=== PATIENT | male | born 1960 | race Caucasian/White ===

== ENCOUNTER 2017-07-20 21:15 | Emergency (ER) | payer BC, OTHER ==
[2017-07-20 21:25] VITALS: BMI 25.8
[2017-07-20] MEDS ORDERED: HYDROmorphone 1 mg/ml ISec IVP STA (21:34)
[2017-07-20] MEDS ORDERED: Sodium Chloride 0.9% 1,000 ML IV ONE (21:34)
--- NOTE | 2017-07-20 21:37 | C.PDOC ---
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 Patient states abdominal pain is "severe" and denies fevr, chills, vomiting, diarrhea, recent travel or any other complaints at this time. Chief Complaint (Nursing): Chest Pain History Per: Patient History/Exam Limitations: no limitations Onset/Duration Of Symptoms: Mins Current Symptoms Are (Timing): Still Present Past Medical History Reviewed: Historical Data, Nursing Documentation, Vital Signs Vital Signs: Last Vital Signs Temp 97.2 F L 07/20/17 21:25 Pulse 88 07/20/17 23:05 Resp 14 07/20/17 23:05 BP 97/60 L 07/20/17 23:05 Pulse Ox 98 07/21/17 00:01 - Medical History PMH: Asthma, Gall Bladder Disease Surgical History: No Surg Hx Family History: States: No Known Family Hx - Social History Hx Tobacco Use: Yes (former smoker) Hx Alcohol Use: Yes Hx Substance Use: No - Immunization History Hx Tetanus Toxoid Vaccination: No Hx Influenza Vaccination: No Hx Pneumococcal Vaccination: No Review Of Systems Except As Marked, All Systems Reviewed And Found Negative. Constitutional: Negative for: Fever, Chills Cardiovascular: Positive for: Chest Pain Respiratory: Negative for: Shortness of Breath Gastrointestinal: Positive for: Abdominal Pain. Negative for: Nausea, Vomiting Musculoskeletal: Negative for: Back Pain Skin: Negative for: Rash Physical Exam - Physical Exam Appears: Non-toxic Skin: Warm, Diaphoretic, Pale Head: Atraumatic, Normacephalic Eye(s): bilateral: Normal Inspection Oral Mucosa: Moist Neck: Normal ROM, Supple Chest: Symmetrical Cardiovascular: Rhythm Regular, No Murmur Respiratory: Normal Breath Sounds, No Rales, No Rhonchi, No Wheezing Gastrointestinal/Abdominal: Tenderness (to eigastrium and upper quadrant), Distention, No Guarding, No Rebound Extremity: Normal ROM, Capillary Refill (<2 seconds) Neurological/Psych: Oriented x3 ED Course And Treatment - Laboratory Results Result Diagrams: 07/20/17 21:39 07/20/17 21:39 ECG: Interpreted By Me, Viewed By Me ECG Rhythm: Sinus Rhythm ECG Interpretation: Normal, No Acute Changes Interpretation Of ECG: NSR, normal tracings. Rate From EC O2 Sat by Pulse Oximetry: 98 (RA) Pulse Ox Interpretation: Normal Disposition Counseled Patient/Family Regarding: Diagnosis - Disposition Referrals: [facility] [Outside] Disposition: HOME/ ROUTINE Disposition Time: 23:52 Condition: STABLE Prescriptions: Dicyclomine [Bentyl] 10 mg PO QID #14 cap Famotidine [Pepcid] 20 mg PO BID #30 tab Naproxen [Naprosyn Tab] 375 mg PO TIDPC #14 tab Potassium Chloride [K-Dur 20] 20 meq PO DAILY #10 tab Sucralfate [Carafate] 1 gm PO BID #20 tablet Instructions: Gastritis (GEN), Diet for Ulcers and Gastritis (ED), Hypokalemia (ED), Acute Abdominal Pain (GEN) Forms: [employer] (Nigerian) - POA Present On Arrival: None - Clinical Impression Clinical Impression: Abdominal pain, Gastritis, Hypokalemia - Scribe Statement The provider has reviewed the documentation as recorded by the Dolores Chamorro All medical record entries made by the Shelleyibelizabeth were at my direction and personally dictated by me. I have reviewed the chart and agree that the record accurately reflects my personal performance of the history, physical exam, medical decision making, and the department course for this patient. I have also personally directed, reviewed, and agree with the discharge instructions and disposition.
--- NOTE | 2017-07-20 21:38 | C.PDOC ---
Chief Complaint (Nursing): Chest Pain Past Medical History Vital Signs: Last Vital Signs Temp 97.2 F L 07/20/17 21:25 Pulse 79 07/20/17 21:25 Resp 18 07/20/17 21:25 BP 146/56 L 07/20/17 21:25 Pulse Ox 98 07/20/17 21:25 - Medical History PMH: Asthma, Gall Bladder Disease Family History: States: Unknown Family Hx - Social History Hx Tobacco Use: Yes (former smoker) Hx Alcohol Use: Yes Hx Substance Use: No - Immunization History Hx Tetanus Toxoid Vaccination: No Hx Influenza Vaccination: No Hx Pneumococcal Vaccination: No ED Course And Treatment O2 Sat by Pulse Oximetry: 98 Disposition - Disposition Forms: [employer] (Occitan)
[2017-07-20 21:45] LABS: BASO # 0.1 K/uL (0.0-0.2); BASO % 0.8 % (0.0-2.0); EOS # 0.1 K/uL (0.0-0.7); EOS % 1.8 % (0.0-4.0); HEMATOCRIT 47.4 % (35.0-51.0); LYMPH # 2.2 K/uL (1.0-4.3); LYMPH % 26.6 % (20.0-40.0); MEAN CELL VOLUME 84.9 fL (80.0-94.0); MEAN CORPUSCULAR HEMOGLOBIN 28.8 pg (27.0-31.0); MEAN CORPUSCULAR HGB CONC 33.9 g/dL (33.0-37.0); MEAN PLATELET VOLUME 7.2 fL (7.2-11.7); MONO # 0.7 K/uL (0.0-0.8); MONO % 8.8 % (0.0-10.0); RED CELL DISTRIBUTION WIDTH 12.9 % (11.5-14.5); WHITE BLOOD COUNT 8.1 K/uL (4.8-10.8)
[2017-07-20 21:54] LABS: CHLORIDE 102 mmol/L (98-107)
[2017-07-20 21:55] LABS: POTASSIUM 3.1 mmol/L (3.6-5.2); SODIUM 142 mmol/L (132-148)
[2017-07-20 21:57] LABS: ALB/GLOB RATIO 1.4 (1.0-2.1); ALKALINE PHOSPHATASE 132 U/L (38-126); ALT/SGPT 57 U/L (21-72); AST/SGOT 71 U/L (17-59); BILIRUBIN,TOTAL 0.7 mg/dL (0.2-1.3); BLOOD UREA NITROGEN 21 mg/dL (9-20); CARBON DIOXIDE 28 mmol/L (22-30); GFR AFRICAN-AMERICAN > 60; GLUCOSE,RANDOM 107 mg/dL (75-110); TOTAL PROTEIN 7.3 g/dL (6.3-8.3)
[2017-07-20 23:12] LABS: URINE BILIRUBIN NEGATIVE (NEGATIVE); URINE BLOOD NEGATIVE (NEGATIVE); URINE COLOR Yellow (YELLOW); URINE GLUCOSE (UA) NORMAL (Normal); URINE KETONE NEGATIVE (NEGATIVE); URINE LEUKOCYTE ESTERASE NEG Leu/uL (Negative); URINE PROTEIN NEGATIVE (NEGATIVE); URINE UROBILINOGEN NORMAL mg/dL (0.2-1.0); WBC URINE < 1 /hpf (0-5)
[2017-07-20 23:23] VITALS: RESP 14
--- NOTE | 2017-07-20 23:30 | CT ---
EXAM: CT Chest Without Intravenous Contrast CLINICAL HISTORY: 57 years old, male; Pain; Abdominal pain; Localized; Upper; Chest pain; Type not specified; Additional info: Severe chest / upper abd pain rad. To the back TECHNIQUE: Axial computed tomography images of the chest without intravenous contrast. All CT scans at this facility use one or more dose reduction techniques, viz.: automated exposure control; ma/kV adjustment per patient size (including targeted exams where dose is matched to indication; i.e. head); or iterative reconstruction technique. Coronal and sagittal reformatted images were created and reviewed. COMPARISON: CT - ANGIO CHEST PE PROTOCOL 05/19/2016 12:00:40 AM FINDINGS: Limitations: Lack of intravenous contrast. Lungs: No consolidation. RIGHT upper lobe calcified granuloma. Pleural space: No pneumothorax. No significant effusion. Heart: No cardiomegaly. No significant pericardial effusion. Bones/joints: No acute fracture. Soft tissues: Unremarkable. Vasculature: Unremarkable. No aneurysm. Lymph nodes: No pathologically enlarged lymph nodes. IMPRESSION: 1.No acute findings. 2.Non-acute findings are described above. EXAM: CT Abdomen and Pelvis Without Intravenous Contrast CLINICAL HISTORY: 57 years old, male; Pain; Abdominal pain; Localized; Upper; Chest pain; Type not specified; Additional info: Severe chest / upper abd pain rad. To the back TECHNIQUE: Axial computed tomography images of the abdomen and pelvis without intravenous contrast. All CT scans at this facility use one or more dose reduction techniques, viz.: automated exposure control; ma/kV adjustment per patient size (including targeted exams where dose is matched to indication; i.e. head); or iterative reconstruction technique. Coronal and sagittal reformatted images were created and reviewed. COMPARISON: No relevant prior studies available. FINDINGS: Limitations: Lack of intravenous contrast. ABDOMEN: Liver: Few too small to characterize lesions. Gallbladder and bile ducts: Gallstones. No ductal dilation. Pancreas: Unremarkable. No ductal dilation. Spleen: No splenomegaly. Adrenals: No mass. Kidneys and ureters: Few too small to characterize lesions within kidneys. Punctate calculus within LEFT kidney. No hydronephrosis. Stomach and bowel: No definite mural thickening. No obstruction. Appendix: Normal caliber. No inflammation. PELVIS: Bladder: Unremarkable. No stones. Reproductive: Unremarkable as visualized. ABDOMEN and PELVIS: Intraperitoneal space: No significant fluid collection. No free air. Bones/joints: Mild degenerative changes of spine. No acute fracture. Soft tissues: Unremarkable. Vasculature: Unremarkable. No aneurysm. Lymph nodes: No pathologically enlarged lymph nodes. IMPRESSION: 1. Cholelithiasis. 2. Incidental/non-acute findings are described above.
[2017-07-21] MEDS ORDERED: Naproxen 550 mg Tab PO STA (00:40)
[2017-07-21] MEDS ORDERED: Naproxen 550 mg Tab PO ONE (00:51)
[2017-07-21 00:55] VITALS: BP 101/64; PULSE 78; TEMP 97.8; O2SAT 98
== END 2017-07-21 00:45 | disposition home or self-care (01) ==
LOC: C.ER 21:15
DX: K29.70 Gastritis, unspecified, without bleeding (principal); R10.13 Epigastric pain; E87.6 Hypokalemia
CPT/HCPCS: 71250; 74176; 80053; 81001; 83690; 85025; 96374; 99285; J1170; J7040

== ENCOUNTER 2017-08-11 15:54 | Emergency (ER) | payer OTHER ==
[2017-08-11 15:54] VITALS: BMI 25.8
[2017-08-11 16:05] VITALS: RESP 20
[2017-08-11] MEDS ORDERED: Morphine 4 MG/ML VIAL IV ONE (16:22)
--- NOTE | 2017-08-11 16:23 | C.PDOC ---
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 upper abd pain which radiated into his mid chesPt ate rice and meat at approx 1PM then approx 1.5 hrs later had acute onset of pain.Pos nausea,no vomting.Pos prior hx stones to GB Chief Complaint (Nursing): Abdominal Pain History/Exam Limitations: no limitations Onset/Duration Of Symptoms: Mins Current Symptoms Are (Timing): Still Present Context: Food Severity: Mild Quality: Sharp Associated Symptoms: Nausea Modifying Factors: None Past Medical History Reviewed: Historical Data, Nursing Documentation, Vital Signs Vital Signs: Last Vital Signs Temp 99.8 F H 08/11/17 18:59 Pulse 80 08/11/17 18:47 Resp 20 08/11/17 18:47 BP 115/73 08/11/17 18:47 Pulse Ox 96 08/11/17 18:47 - Medical History PMH: Asthma, Gall Bladder Disease Family History: States: Unknown Family Hx - Social History Hx Tobacco Use: Yes (former smoker) Hx Alcohol Use: Yes Hx Substance Use: No - Immunization History Hx Tetanus Toxoid Vaccination: No Hx Influenza Vaccination: No Hx Pneumococcal Vaccination: No Review Of Systems Except As Marked, All Systems Reviewed And Found Negative. Respiratory: Negative for: Cough, Shortness of Breath Genitourinary: Negative for: Dysuria, Frequency Physical Exam - Physical Exam Appears: In Acute Distress Skin: Normal Color Head: Atraumatic Nose: Normal Oral Mucosa: Moist Tongue: Normal Appearing Neck: Normal Chest: Symmetrical Cardiovascular: Rhythm Regular Respiratory: Normal Breath Sounds Gastrointestinal/Abdominal: Tenderness Back: Normal Inspection Extremity: Normal ROM Neurological/Psych: Oriented x3, Normal Speech ED Course And Treatment - Laboratory Results Result Diagrams: 08/11/17 16:27 08/11/17 16:27 ECG: Interpreted By Me ECG Rhythm: Sinus Rhythm ECG Interpretation: Normal, No Acute Changes Interpretation Of ECG: nsr at 77bpm,intervals wnl,no ectopy,st segment,T waves all wnl.No old EKG for comparison Rate From EC O2 Sat by Pulse Oximetry: 100 (ra) - Radiology CXR: Interpreted by Me CXR Interpretation: Yes: No Acute Disease - CT Scan/US abdomen Other Rad Studies (CT/US): Read By Radiologist CT/US Interpretation: Pos cholelithiasis but no evidence of acute cholecystitis Medical Decision Making Medical Decision Making: Pt with exacerbation of biliary colic,now tolerating pain,taking fluids.Pt stable for d/c.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
[2017-08-11] MEDS ORDERED: Morphine 4 MG/ML VIAL ONE (16:26)
[2017-08-11 16:32] LABS: BASO # 0.1 K/uL (0.0-0.2); BASO % 0.8 % (0.0-2.0); EOS # 0.1 K/uL (0.0-0.7); EOS % 1.6 % (0.0-4.0); HEMATOCRIT 44.3 % (35.0-51.0); LYMPH # 1.6 K/uL (1.0-4.3); LYMPH % 19.4 % (20.0-40.0); MEAN CELL VOLUME 84.2 fL (80.0-94.0); MEAN CORPUSCULAR HEMOGLOBIN 29.1 pg (27.0-31.0); MEAN CORPUSCULAR HGB CONC 34.5 g/dL (33.0-37.0); MONO # 0.5 K/uL (0.0-0.8); MONO % 6.2 % (0.0-10.0); NRBC % 0.1 % (0.0-2.0); WHITE BLOOD COUNT 8.5 K/uL (4.8-10.8)
[2017-08-11 16:38] LABS: CHLORIDE 101 mmol/L (98-107); SODIUM 141 mmol/L (132-148)
[2017-08-11 16:41] LABS: ALB/GLOB RATIO 1.3 (1.0-2.1); ALKALINE PHOSPHATASE 121 U/L (38-126); ALT/SGPT 72 U/L (21-72); AST/SGOT 101 U/L (17-59); BILIRUBIN,TOTAL 1.3 mg/dL (0.2-1.3); BLOOD UREA NITROGEN 16 mg/dL (9-20); CARBON DIOXIDE 23 mmol/L (22-30); GFR AFRICAN-AMERICAN > 60; GLUCOSE,RANDOM 113 mg/dL (75-110); TOTAL PROTEIN 7.1 g/dL (6.3-8.3)
--- NOTE | 2017-08-11 17:20 | US ---
HISTORY: abd pain COMPARISON: Limited abdominal ultrasound performed 05/23/16 TECHNIQUE: Sonographic evaluation of the right upper quadrant of the abdomen. FINDINGS: Examination limited by bowel gas and habitus. LIVER: Measures 17.4 cm in sagittal dimension. Echogenic liver may be seen in setting of hepatic parenchymal disease or fatty infiltration. No focal hepatic mass identified. The main portal vein appears patent with normal directional flow. No intrahepatic bile duct dilatation. GALLBLADDER: Contracted state of gallbladder limits evaluation. Cholelithiasis. No gallbladder wall thickening or pericholecystic edema. Negative sonographic Pickett's sign as assessed by the hot patcher. COMMON BILE DUCT: Measures 5 mm. PANCREAS: Not well-visualized. RIGHT KIDNEY: Measures 11.0 x 5.6 x 5.1 cm. No hydronephrosis or obstructing calculus identified. AORTA: Not well visualized. IVC: Not well-visualized. OTHER FINDINGS: None . IMPRESSION: Limited study. Echogenic liver may be seen in setting of hepatic parenchymal disease or fatty infiltration. Cholelithiasis. Contracted state of gallbladder limits evaluation.
[2017-08-11 18:48] VITALS: BP 115/73; PULSE 80
[2017-08-11 18:59] VITALS: TEMP 99.8
[2017-08-11 19:55] VITALS: O2SAT 100
--- NOTE | 2017-08-12 00:09 | RAD ---
HISTORY: abd pain COMPARISON: Chest x-ray 05/23/2016 TECHNIQUE: Chest one view . FINDINGS: LUNGS: No focal consolidation is seen. PLEURA: No pleural effusion is identified. CARDIOVASCULAR: Heart size is within normal limits. OSSEOUS STRUCTURES: Visualized osseous structures are unremarkable. VISUALIZED UPPER ABDOMEN: Unremarkable. OTHER FINDINGS: None. IMPRESSION: No acute cardiopulmonary process seen.
--- NOTE | 2017-08-16 06:38 | CARD ---
APPROVED REPORT EKG Measurement Heart [id number] <Conclusion> Normal sinus rhythm Normal ECG
== END 2017-08-11 18:59 | disposition home or self-care (01) ==
LOC: C.ER 15:54
DX: K80.50 Calculus of bile duct without cholangitis or cholecystitis without obstruction (principal)
CPT/HCPCS: 71010; 76705; 80053; 83690; 85025; 93005; 96374; 96375; 99284; J2270; J2405

== ENCOUNTER 2017-12-13 17:15 | Emergency (ER) | payer OTHER ==
[2017-12-13 17:21] VITALS: RESP 18; O2SAT 98; BMI 32.3
[2017-12-13] MEDS ORDERED: Sodium Chloride 0.9% 1,000 ML IV ONE (17:39)
[2017-12-13] MEDS ORDERED: Sodium Chloride 0.9% 1,000 ML ONE (17:46)
--- NOTE | 2017-12-13 17:52 | C.PDOC ---
History Of Present Illness 57 year old male presents to the ED c/o sudden onset of RUQ pain that started today. Patient reports he ate greasy fried rice and chicken today and soon after he started feeling his symptoms. Patient has a PMHx of biliary colic since 2014. Patient denies fever, nausea, vomit, diarrhea. Time Seen by Provider: 12/13/17 17:32 Chief Complaint (Nursing): Abdominal Pain History Per: Patient History/Exam Limitations: no limitations Onset/Duration Of Symptoms: Hrs Current Symptoms Are (Timing): Still Present Context: Food Severity: Moderate Location Of Pain/Discomfort: RUQ Radiation Of Pain To:: None Quality Of Discomfort: "Pain" Exacerbating Factors: Food Alleviating Factors: None Recent travel outside of the [place]: No Additional History Per: Patient Past Medical History Reviewed: Historical Data, Nursing Documentation, Vital Signs Vital Signs: Last Vital Signs Temp 98.0 F 12/13/17 20:01 Pulse 78 12/13/17 20:01 Resp 18 12/13/17 20:01 BP 118/71 12/13/17 20:01 Pulse Ox 98 12/13/17 21:36 - Medical History PMH: Asthma, Gall Bladder Disease Surgical History: No Surg Hx Family History: States: Unknown Family Hx - Social History Hx Tobacco Use: Yes (former smoker) Hx Alcohol Use: No Hx Substance Use: No - Immunization History Hx Tetanus Toxoid Vaccination: No Hx Influenza Vaccination: No Hx Pneumococcal Vaccination: No Review Of Systems Constitutional: Negative for: Fever, Chills Cardiovascular: Negative for: Chest Pain, Palpitations Respiratory: Negative for: Cough, Shortness of Breath Gastrointestinal: Positive for: Abdominal Pain. Negative for: Nausea, Vomiting , Diarrhea Musculoskeletal: Negative for: Back Pain Skin: Negative for: Rash Neurological: Negative for: Weakness, Numbness Physical Exam - Physical Exam Appears: Non-toxic, Other (Moderate distress) Skin: Normal Color, Warm, Dry Head: Atraumatic, Normacephalic Eye(s): bilateral: Normal Inspection Nose: No Discharge, No Deformity Oral Mucosa: Moist Neck: Normal ROM, Supple Chest: Symmetrical Cardiovascular: Rhythm Regular, No Murmur Respiratory: Normal Breath Sounds, No Rales, No Rhonchi, No Wheezing Gastrointestinal/Abdominal: Soft, Tenderness (RUQ), No Guarding, No Rebound, Other (negative McBurneys) Extremity: Normal ROM, No Deformity, No Swelling Neurological/Psych: Oriented x3, Normal Speech, Normal Cognition Gait: Steady ED Course And Treatment - Laboratory Results Result Diagrams: 12/13/17 17:54 12/13/17 17:54 Lab Interpretation: Abnormal (lfts wnl, pt refused to provide urine for UDS/UA, trop neg. tox + opiates) ECG: Interpreted By Me ECG Rhythm: Sinus Rhythm ECG Interpretation: Normal Rate From EC O2 Sat by Pulse Oximetry: 98 (On RA) Pulse Ox Interpretation: Normal - Radiology CXR: Interpreted by Me CXR Interpretation: Yes: No Acute Disease - Other Rad abd x 2 X-Ray: Interpreted by Me (++ increased stool and gas) Progress Note: NS, toradol Reevaluation Time: 19:18 Reassessment Condition: Improved (pt agressive and foul mouthed with staff, repeatedly demanding narcotic pain relievers, though often re-evaled noted resting comfortably texting on his phone. Extensive d/w pt to ask to curb foul language and to encourage to allow abd films to coomplete his eval. Pt circumlocutious and evasive and poor understanding that he does NOT have acute biliary colic, and may have constipation colic but will now allow belly films. After 3 re-approaches wt pt he finally declined further eval and will f/u as opt for elective Surg Eval for ? biliary colic- dx since 2013) Medical Decision Making Medical Decision Making: Impression : sudden onset RUQ pain Plan: * EKG * Labs * UA * Obstructive series X-Ray * Pepcid 20 mg IVP * Iv fluids * Toradol 30 mg IVP * Zofran 4 mg IVP constipatin, not biliary colic. 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 Disposition Doctor Will See Patient In The: Office Counseled Patient/Family Regarding: Studies Performed, Diagnosis - Disposition Referrals: Musa Park MD [Staff Provider] - Disposition: HOME/ ROUTINE Disposition Time: 19:21 Condition: GOOD Additional Instructions: Constipation: Trial a laxative, Mag Citrate given- and re-evaluate your abdominal discomfort after using the bathroom 2-3 times Healthy diet w 7 fresh fruits and vegetables daily Weight loss and exercise program Suspected Biliary Colic: follow-up with Dr. Cooley- General Surgeon Pre Press Proofer- to schedule outpatient evaluation. Avoid fatty foods which may provoke biliary colic your labs and liver function tests (specific to gall bladder disease) are normal today. Prescriptions: Magnesium Citrate [[facility] Magnesium Citrate] 300 ml PO ONCE PRN #1 bottle PRN Reason: Constipation Instructions: Constipation (ED), Biliary Colic (ED) Forms: [employer] (Kinyarwanda) - Clinical Impression Clinical Impression: Abdominal colic, Drug-seeking behavior - Scribe Statement The provider has reviewed the documentation as recorded by the Scribe Elias Peguero All medical record entries made by the Scribe were at my direction and personally dictated by me. I have reviewed the chart and agree that the record accurately reflects my personal performance of the history, physical exam, medical decision making, and the department course for this patient. I have also personally directed, reviewed, and agree with the discharge instructions and disposition.
[2017-12-13 18:04] LABS: BASO # 0.1 K/uL (0.0-0.2); BASO % 0.6 % (0.0-2.0); EOS # 0.1 K/uL (0.0-0.7); EOS % 1.4 % (0.0-4.0); HEMOGLOBIN 16.1 g/dL (12.0-18.0); LYMPH # 2.1 K/uL (1.0-4.3); MEAN CELL VOLUME 85.3 fL (80.0-94.0); MEAN CORPUSCULAR HEMOGLOBIN 29.7 pg (27.0-31.0); MEAN CORPUSCULAR HGB CONC 34.8 g/dL (33.0-37.0); MEAN PLATELET VOLUME 7.4 fL (7.2-11.7); MONO # 0.8 K/uL (0.0-0.8); MONO % 8.5 % (0.0-10.0); NEUT # 6.8 K/uL (1.8-7.0); NEUT % 68.5 % (50.0-75.0); NRBC % 0.1 % (0.0-2.0); RBC 5.44 Mil/uL (4.40-5.90); RED CELL DISTRIBUTION WIDTH 13.2 % (11.5-14.5); WHITE BLOOD COUNT 9.9 K/uL (4.8-10.8)
[2017-12-13 18:13] LABS: ALB/GLOB RATIO 1.4 (1.0-2.1); ALBUMIN 4.2 g/dL (3.5-5.0); ALT/SGPT 55 U/L (21-72); AST/SGOT 67 U/L (17-59); BLOOD UREA NITROGEN 24 mg/dL (9-20); CALCIUM 8.6 mg/dl (8.6-10.4); GFR AFRICAN-AMERICAN > 60; GFR NON-AFRICAN AMERICAN > 60; LIPASE 97 U/L (23-300)
[2017-12-13 20:01] VITALS: BP 118/71; PULSE 78; TEMP 98
[2017-12-13 20:23] LABS: SQUAMOUS EPITHIAL < 1 /hpf (0-5); URINE BILIRUBIN NEGATIVE (NEGATIVE); URINE BLOOD NEGATIVE (NEGATIVE); URINE CLARITY Clear (Clear); URINE COLOR Yellow (YELLOW); URINE GLUCOSE (UA) NORMAL (Normal); URINE LEUKOCYTE ESTERASE NEG Leu/uL (Negative); URINE NITRATE NEGATIVE (NEGATIVE); URINE PROTEIN NEGATIVE (NEGATIVE); URINE UROBILINOGEN NORMAL mg/dL (0.2-1.0)
[2017-12-13 20:42] LABS: BARBITURATES, UR NEGATIVE (NEGATIVE); BENZODIAZEPINES, UR NEGATIVE (NEGATIVE); OPIATES, UR POSITIVE (NEGATIVE); PHENCYCLIDINE, UR NEGATIVE (NEGATIVE)
--- NOTE | 2017-12-14 09:48 | RAD ---
Abdomen five views History: Abdominal pain. Comparison: None available. Findings: Mild venous congestion. Mild cardiomegaly. Moderate fecal retention in the colon. Distended/mildly dilated loops of small bowel seen throughout the abdomen. Impression: Nonspecific bowel gas pattern with moderate fecal retention in the colon. Few mildly dilated loops of small bowel seen in the remainder of the abdomen. Clinical correlation.
--- NOTE | 2017-12-14 12:17 | CARD ---
APPROVED REPORT EKG Measurement Heart [id number] <Conclusion> Normal sinus rhythm Normal ECG
== END 2017-12-13 20:22 | disposition home or self-care (01) ==
LOC: C.ER 17:15
DX: R10.84 Generalized abdominal pain (principal); Z76.5 Malingerer [conscious simulation]
CPT/HCPCS: 74022; 80053; 80320; 80324; 80345; 80346; 80349; 80353; 80358; 80361; 81001; 83690; 83992; 84484; 85025; 93005; 96361; 96374; 96375; 99285; J1885; J2405; J7040

== ENCOUNTER 2018-01-06 21:32 | Emergency (ER) | payer OTHER ==
[2018-01-06 21:32] VITALS: BMI 32.3
--- NOTE | 2018-01-06 22:01 | C.PDOC ---
History Of Present Illness Patient presents to ER with complaints of abdominal pain and some midsternal chest discomfort which he feels occurs when his "gallstones are acting up". He denies any fever, chills, nausea and vomiting. Patient is able to tolerate PO intake. Time Seen by Provider: 01/06/18 22:00 Chief Complaint (Nursing): Chest Pain History Per: Patient History/Exam Limitations: no limitations Onset/Duration Of Symptoms: Days Current Symptoms Are (Timing): Still Present Associated Symptoms: denies: Nausea Past Medical History Reviewed: Historical Data, Nursing Documentation, Vital Signs Vital Signs: Last Vital Signs Temp 97.5 F L 01/06/18 21:37 Pulse 81 01/06/18 22:30 Resp 18 01/06/18 21:37 BP 147/81 01/06/18 21:37 Pulse Ox 100 01/06/18 23:47 - Medical History PMH: Asthma, Gall Bladder Disease Surgical History: No Surg Hx Family History: States: Unknown Family Hx - Social History Hx Tobacco Use: Yes (former smoker) Hx Alcohol Use: No Hx Substance Use: No - Immunization History Hx Tetanus Toxoid Vaccination: No Hx Influenza Vaccination: No Hx Pneumococcal Vaccination: No Review Of Systems Constitutional: Negative for: Fever, Chills Cardiovascular: Positive for: Chest Pain Gastrointestinal: Positive for: Abdominal Pain. Negative for: Nausea, Vomiting Physical Exam - Physical Exam Appears: Non-toxic Skin: Normal Color, Warm, Other (multiple subcutaneous lipomas present diffusely ) Head: Normacephalic Eye(s): bilateral: Normal Inspection Neck: Supple Chest: Symmetrical Cardiovascular: Rhythm Regular Respiratory: No Rales, No Rhonchi, No Wheezing Gastrointestinal/Abdominal: Bowel Sounds, Soft, Tenderness (right upper quadrant ), Distention, No Guarding, No Rebound Extremity: Normal ROM Extremity: Bilateral: Atraumatic Neurological/Psych: Oriented x3, Normal Speech, Normal Cognition Gait: Steady ED Course And Treatment - Laboratory Results Result Diagrams: 01/06/18 22:35 01/06/18 22:35 ECG: Interpreted By Me, Viewed By Me ECG Rhythm: Sinus Rhythm (79), Nonspecific Changes O2 Sat by Pulse Oximetry: 100 (RA) Pulse Ox Interpretation: Normal Progress Note: Labs, US abdomen ordered. Pepcid, toradol, Zofran and IV fluids administered. Pt feels much better, pain free and wants to go home. Will follow up in clinic Reevaluation Time: 02:59 Reassessment Condition: Improved Disposition Counseled Patient/Family Regarding: Studies Performed, Diagnosis, Need For Followup - Disposition Referrals: [facility] [Outside] [facility] [Outside] Disposition: HOME/ ROUTINE Disposition Time: 22:01 Condition: FAIR Prescriptions: traMADol [Ultram] 50 mg PO TID #12 tab Instructions: Gallstones (DC) Forms: [employer] (Bahamian) - Clinical Impression Clinical Impression: Gall stones, Biliary colic - Scribe Statement The provider has reviewed the documentation as recorded by the Scribe (Kenya Suarez) Provider Attestation: All medical record entries made by the Scribe were at my direction and personally dictated by me. I have reviewed the chart and agree that the record accurately reflects my personal performance of the history, physical exam, medical decision making, and the department course for this patient. I have also personally directed, reviewed, and agree with the discharge instructions and disposition.
[2018-01-06] MEDS ORDERED: Sodium Chloride 0.9% 1,000 ML IV ONE (22:09)
[2018-01-06] MEDS ORDERED: Sodium Chloride 0.9% 1,000 ML ONE (22:42)
[2018-01-06 22:44] LABS: BASO % 0.6 % (0.0-2.0); EOS # 0.2 K/uL (0.0-0.7); EOS % 2.5 % (0.0-4.0); LYMPH # 1.6 K/uL (1.0-4.3); LYMPH % 18.2 % (20.0-40.0); MEAN CELL VOLUME 85.7 fL (80.0-94.0); MEAN CORPUSCULAR HGB CONC 35.1 g/dL (33.0-37.0); MEAN PLATELET VOLUME 7.7 fL (7.2-11.7); MONO # 0.5 K/uL (0.0-0.8); MONO % 5.3 % (0.0-10.0); NEUT # 6.3 K/uL (1.8-7.0); NEUT % 73.4 % (50.0-75.0); RBC 5.31 Mil/uL (4.40-5.90); RED CELL DISTRIBUTION WIDTH 12.7 % (11.5-14.5); WHITE BLOOD COUNT 8.6 K/uL (4.8-10.8)
[2018-01-06 22:47] LABS: INR 1.1; PROTHROMBIN TIME 12.3 SECONDS (9.7-12.2)
[2018-01-06 22:51] LABS: ALB/GLOB RATIO 1.4 (1.0-2.1); ALT/SGPT 52 U/L (21-72); AST/SGOT 75 U/L (17-59); BLOOD UREA NITROGEN 23 mg/dL (9-20); CALCIUM 9.3 mg/dl (8.6-10.4); GFR AFRICAN-AMERICAN > 60; GFR NON-AFRICAN AMERICAN > 60; LIPASE 160 U/L (23-300)
--- NOTE | 2018-01-07 00:18 | US ---
EXAM: US Abdomen Limited, Right Upper Quadrant CLINICAL HISTORY: 57 years old, male; Pain; Abdominal pain; Additional info: Ruq pain, HX of gall stones TECHNIQUE: Real-time ultrasound of the right upper quadrant with image documentation. COMPARISON: US - ABDOMEN LIMITED 2017-08-11 17:00 FINDINGS: Limitations: Body habitus. Overlying bowel gas. Liver: Enlarged, 19.8 cm. Fatty infiltration. No mass. No intrahepatic ductal dilatation. Gallbladder: Gallstones. No definite wall thickening. No pericholecystic fluid. No sonographic Pickett's sign. Common bile duct: No dilatation. No stones. Pancreas: Obscured by overlying bowel gas. Right kidney: Normal echogenicity. No hydronephrosis. IMPRESSION: 1. Cholelithiasis. 2. Incidental/non-acute findings are described above.
[2018-01-07 03:06] VITALS: BP 140/78; PULSE 87; RESP 20; TEMP 98.6; O2SAT 99
--- NOTE | 2018-01-07 18:51 | CARD ---
APPROVED REPORT EKG Measurement Heart [id number] <Conclusion> Normal sinus rhythm Normal ECG
== END 2018-01-07 03:06 | disposition home or self-care (01) ==
LOC: C.ER 21:32
DX: K80.70 Calculus of gallbladder and bile duct without cholecystitis without obstruction (principal); Z87.891 Personal history of nicotine dependence
CPT/HCPCS: 76705; 80053; 83690; 85025; 85610; 85730; 93005; 96361; 96374; 96375; 99284; J1885; J2405; J7040